=== PATIENT | female | born 1990 | race Caucasian/White ===

== ENCOUNTER 2021-01-05 16:36 | Emergency (ER) | payer OTHER ==
[~2021-01-05] VITALS: Ht 167.6 cm; Wt 57.6 kg
[2021-01-05 16:39] VITALS: BP_SYST 103
[2021-01-05] MEDS ORDERED: DIPHENHYDRAMINE INJ 50 MG/ML VIAL IVP ONE (17:30)
[2021-01-05] MEDS ORDERED: EPINEPHrine 1 MG/ML AMP IM ONE (17:30)
[2021-01-05] MEDS ORDERED: FAMOTIDINE PF 20 MG/2 ML VIAL IVP ONE (17:30)
[2021-01-05 18:18] VITALS: BP_SYST 118
== END 2021-01-05 18:18 | disposition home or self-care (01) ==
LOC: SED 16:36
DX: T63.441A Toxic effect of venom of bees, accidental (unintentional), initial encounter (principal); Y92.89 Other specified places as the place of occurrence of the external cause
CPT/HCPCS: 81025; 96372; 96374; 96375; 99284; J0171; J1200; J3490; 99285